=== PATIENT | male | born 1960 | race Caucasian/White ===

== ENCOUNTER 2020-10-13 02:12 | Inpatient (IN) | payer MEDICAID ==
[~2020-10-13] VITALS: Ht 180.3 cm; Wt 88.5 kg
--- NOTE | 2020-10-13 02:50 | NUR ---
US AT BEDSIDE
[2020-10-13] MEDS ORDERED: ONDANSETRON 2MG/ML, 2ML IVPush ONE (03:00)
[2020-10-13] MEDS ORDERED: MORPHINE SULFATE 4 MG/ML, 1ML IVPush ONE (03:00)
[2020-10-13] MEDS ORDERED: ONDANSETRON 2MG/ML, 2ML ONE (03:04)
[2020-10-13] MEDS ORDERED: MORPHINE SULFATE 4 MG/ML, 1ML ONE (03:05)
[2020-10-13 03:11] LABS: BASOPHILS % (AUTO) 0 % (0-1); EOSINOPHILS % (AUTO) 4 % (1-7); LYMPHOCYTES % (AUTO) 22 % (22-44); MEAN CORPUSCULAR HEMOGLOBIN 32.4 pg (27.5-34.5); MEAN PLATELET VOLUME 7.7 fL (7.4-10.4); MONOCYTES % (AUTO) 11 % (2-9); NEUTROPHILS % (AUTO) 62 % (42-75); PLATELET COUNT 191 x10^3/uL (130-400); RED BLOOD COUNT 4.49 x10^6/uL (4.38-5.82); RED CELL DISTRIBUTION WIDTH 13.3 % (9.4-14.8)
[2020-10-13 03:21] LABS: ALBUMIN 3.2 g/dL (3.4-5.0); ANION GAP 11 mmol/L (5-15); CALCIUM 8.6 mg/dL (8.5-10.1); CHLORIDE 104 mmol/L (98-107); CREATININE 0.88 mg/dL (0.7-1.3)
[2020-10-13 03:24] LABS: TROPONIN I < 0.015 ng/mL (0.000-0.045)
[2020-10-13 03:31] LABS: MD NO
[2020-10-13] MEDS ORDERED: HEPARIN 5,000 UNITS/ML, 1ML IV ONE (04:30)
[2020-10-13] MEDS ORDERED: HEPARIN 5,000 UNITS/ML, 1ML ONE (05:03)
[2020-10-13] MEDS ORDERED: HEPARIN 25,000 UNITS/250ML PMX 250 ML ONE (05:04)
--- NOTE | 2020-10-13 05:18 | NUR ---
REPORT TO KARL HICKEY
[2020-10-13] MEDS: HEPARIN 25,000 UNITS/250ML PMX 250 ML IV PRN (05:21)
[2020-10-13 05:47] VITALS: BP 146/78
[2020-10-13 06:45] VITALS: BP 135/80
[2020-10-13] MEDS ORDERED: MORPHINE SULFATE 4 MG/ML, 1ML IVPush PRN (07:30)
[2020-10-13] MEDS ORDERED: APIX5TAB PO (07:57)
[2020-10-13] MEDS ORDERED: ENALAPRILAT 1.25 MG/ML, 2ML IVPush PRN (08:00)
[2020-10-13] MEDS ORDERED: HYDROcodone/APAP 5/325 TABLET PO PRN (08:00)
[2020-10-13] MEDS ORDERED: MELATONIN 5 MG TABLET PO PRN (08:00)
[2020-10-13] MEDS ORDERED: NICOTINE 21 MG/24 HR PATCH.TD24 TD ONE (08:00)
[2020-10-13] MEDS ORDERED: DOCUSATE 100 MG CAPSULE PO PRN (08:00)
[2020-10-13] MEDS ORDERED: ACETAMINOPHEN 325 MG TABLET PO PRN (08:00)
[2020-10-13] MEDS ORDERED: ONDANSETRON 2MG/ML, 2ML IVPush PRN (08:00)
[2020-10-13] MEDS ORDERED: POLYETHYLENE GLYCOL 17 GM PACKET PO PRN (08:00)
[2020-10-13 08:35] LABS: BASOPHILS % (AUTO) 0 % (0-1); EOSINOPHILS % (AUTO) 4 % (1-7); LYMPHOCYTES % (AUTO) 23 % (22-44); MEAN CORPUSCULAR HEMOGLOBIN 32.3 pg (27.5-34.5); MEAN PLATELET VOLUME 7.9 fL (7.4-10.4); MONOCYTES % (AUTO) 12 % (2-9); NEUTROPHILS % (AUTO) 61 % (42-75); PLATELET COUNT 177 x10^3/uL (130-400); RED BLOOD COUNT 4.62 x10^6/uL (4.38-5.82); RED CELL DISTRIBUTION WIDTH 13.4 % (9.4-14.8)
[2020-10-13 08:39] LABS: MD NO
[2020-10-13 10:08] LABS: TROPONIN I < 0.015 ng/mL (0.000-0.045)
[2020-10-13] MEDS: morphine SULFATE 10 MG/ML, 1ML IVPush PRN ×2 (10:26→13:34)
[2020-10-13] MEDS: THIAMINE 200 MG, MVI ADULT 10 ML, FOLIC ACID 1 MG in D5%-0.9% NACL 1,000 ML IV SCH (10:27)
[2020-10-13 12:03] VITALS: BP 157/88
[2020-10-13] MEDS: HEPARIN 5,000 UNITS/ML, 1ML IV PRN (12:57)
[2020-10-13] MEDS: CHLORDIAZEPOXIDE 25 MG CAPSULE PO SCH ×2 (16:24→22:37)
[2020-10-13] MEDS ORDERED: CHLORDIAZEPOXIDE 10 MG CAPSULE PO SCH (16:30)
[2020-10-13 17:35] LABS: TROPONIN I < 0.015 ng/mL (0.000-0.045)
[2020-10-13] MEDS ORDERED: OMNIPAQUE 350 MG/ML, 100ML BOTTLE ONE (19:18)
[2020-10-13 20:49] VITALS: BP 137/82
[2020-10-14 00:35] VITALS: BP 142/83
[2020-10-14] MEDS: HEPARIN 5,000 UNITS/ML, 1ML IV PRN (00:44)
[2020-10-14] MEDS: CHLORDIAZEPOXIDE 25 MG CAPSULE PO SCH ×2 (04:45→09:54)
[2020-10-14] MEDS: HEPARIN 25,000 UNITS/250ML PMX 250 ML IV PRN (05:48)
[2020-10-14 06:58] LABS: ALANINE AMINOTRANSFERASE 40 U/L (12-78); ALBUMIN 2.6 g/dL (3.4-5.0); ANION GAP 7 mmol/L (5-15); CALCIUM 8.2 mg/dL (8.5-10.1); CHLORIDE 108 mmol/L (98-107); CREATININE 0.71 mg/dL (0.7-1.3)
[2020-10-14 06:59] VITALS: BP 110/66
[2020-10-14 07:07] LABS: ALKALINE PHOSPHATASE 69 U/L (45-117); BILIRUBIN,TOTAL 0.5 mg/dL (0.2-1.0); CHOL/HDL RATIO 3.1; CHOLESTEROL, TOTAL 138 mg/dL (140-239); HDL CHOL % 32 % (26-37); HDL CHOLESTEROL (DIRECT) 44 mg/dL (40-60); LDL CHOLESTEROL,CALCULATED 65 mg/dL (54-169); LDL/HDL RATIO 1.5 (0.5-3.0); TRIGLYCERIDES 147 mg/dL (50-200); VLDL CHOLESTEROL 29 mg/dL (0-25)
[2020-10-14] MEDS: THIAMINE 200 MG, MVI ADULT 10 ML, FOLIC ACID 1 MG in D5%-0.9% NACL 1,000 ML IV SCH (09:22)
[2020-10-14 11:27] VITALS: BP 131/74
== END 2020-10-14 15:25 | disposition left against medical advice (07) | DRG 301 ==
LOC: ED 05:27 → EDIP 05:35 → 3N 05:37 → 4EST 10:03
PROVIDERS: ADMIT Internal Medicine; ATTEND Hospitalist
DX: I82.411 Acute embolism and thrombosis of right femoral vein (principal); F14.10 Cocaine abuse, uncomplicated; F12.10 Cannabis abuse, uncomplicated; F10.10 Alcohol abuse, uncomplicated; F15.90 Other stimulant use, unspecified, uncomplicated; F17.210 Nicotine dependence, cigarettes, uncomplicated; Z53.29 Procedure and treatment not carried out because of patient's decision for other reasons
CPT/HCPCS: 36415; 74018; 96374; 96375; 99285; J7042; 71045; 74177; 76700; 80048; 80053; 80061; 82040; 83036; 83735; 84100; 84484; 85025; 85520; 93005; 93306; G0378; J1644; J2405; J3411; Q9967; J2270